=== PATIENT | male | born 1940 | race Caucasian/White ===

== ENCOUNTER 2016-06-23 15:52 | Emergency (ER) | payer MEDICARE, MEDICAID ==
[~2016-06-23 15:52] MED LIST: Sodium Chloride 0.9% 1,000 ML BAG ONE; Sodium Chloride 0.9% 100 ML BAG ONE
[2016-06-23] MEDS ORDERED: Morphine Sulfate 2 MG/ML SYRINGE ONE (16:28)
[2016-06-23] MEDS ORDERED: Ketorolac Tromethamine 30 MG/ML VIAL ONE (16:29)
[2016-06-23] MEDS ORDERED: Ondansetron HCl/PF 4 MG/2 ML Vial ONE (16:29)
[2016-06-23 16:47] LABS: Blood, Urine Moderate (Negative); Clarity Clear (Clear); Glucose, Urine (Dipstick) Negative (Negative); Leukocyte Negative (Negative); Nitrite Negative (Negative); Protein, Urine (Dipstick) > or equal to 300 mg/dL (Neg-Trace); Urobilinogen 0.2 mg/dL (0.2-1.0); pH, Urine 7.5 (5.0-9.0)
--- NOTE | 2016-06-23 16:50 | RAD ---
FRONTAL VIEW CHEST: Date: 06/23/16 COMPARISON: 12/26/14. INDICATION: Cough. FINDINGS: There is hazy density of the inferior left hemithorax. Right lung is hyperinflated. Cardiac silhouet te is accentuated by portable technique. There is prominence of the hilar regions bilaterally. Posto perative and post-traumatic change of the left upper extremity noted. Leads overlying chest limit de tail. There is incomplete visualization of the inferior aspect of the right lateral costophrenic sul cus. IMPRESSION: Evidence of pleural effusion of the left chest with adjacent atelectasis and/or pneumonia. Recommend continued imaging follow-up. POS: [facility]
[2016-06-23 16:53] LABS: Bilirubin Negative (Negative); Icto Negative (Negative)
[2016-06-23 16:54] LABS: Bacteria/HPF Rare-Few HPF (None Seen); Other Microscopic Description C&S SET UP; RBC/HPF 0-3 HPF (0-3); Squamous Epithelial 0-3 HPF (0-3)
[2016-06-23 16:59] LABS: Band 2 % (5-11); Eosinophils 3 % (0-10); Hemoglobin 10.1 g/dL (14.0-18.0); Lymphocytes 8 % (21-51); MDiff Complete? YES; Mean Corpuscular HGB CONC 33.4 g/dL (32.0-36.0); Mean Corpuscular Hemoglobin 30.9 pg (27.0-31.0); Mean Corpuscular Volume 92.6 fl (80.0-94.0); Mean Platelet Volume 6.2 fL (7.4-10.4); Monocytes 2 % (0-10); Neutrophil 85 % (42-75); Platelet Count 349 thou/uL (130-400); RBC Distribution Width 13.3 % (11.5-14.5); Red Blood Cell (RBC) Count 3.27 mill/uL (4.70-6.10); White Blood Cell (WBC) Count 13.4 thou/uL (4.8-10.8)
[2016-06-23 17:02] LABS: ALT (SGPT) 19 U/L (0-55); AST (SGOT) 17 U/L (5-34); Albumin 3.1 g/dL (3.4-4.8); Alkaline Phosphatase 180 U/L (40-150); Amylase 70 U/L (20-160); Anion Gap 14 mmol/L (10-20); BUN (Urea Nitrogen) 32 mg/dL (8.4-25.7); Bilirubin, Total 1.4 mg/dL (0.2-1.2); Calc. Creatinine Clearance 0 mL/min (70-130); Calcium 9.4 mg/dL (7.8-10.44); Carbon Dioxide 30 mmol/L (23-31); Chloride 97 mmol/L (98-107); Estimated GFR-MDRD 48; Glucose 104 mg/dL (83-110); Lipase 17 U/L (8-78); Potassium 3.7 mmol/L (3.5-5.1); Protein, Total 7.1 g/dL (5.8-8.1); Sodium 137 mmol/L (136-145)
[2016-06-23 17:36] LABS: INR-International Normal Ratio 1.2; Prothrombin Time 15.6 SEC (12.0-14.7)
[2016-06-23 17:37] LABS: PTT 39.1 SEC (22.9-36.1)
--- NOTE | 2016-06-23 18:33 | CT ---
CT ABDOMEN AND PELVIS WITHOUT CONTRAST 06/23/16 HISTORY: History of colon cancer, colostomy, nausea and diarrhea for two weeks. Green mucus diarrhea. Blood i n stool. COMPARISON: Chest, abdomen and pelvic CT 09/17/14. FINDINGS: There is a large left pleural effusion. Heart size is normal. Small pericardial effusion. There are extensive calcific plaque throughout the aortoiliac system without aneurysmal dilatation. Ostomy is noted in the right lower quadrant of the abdomen. There is a large inferior left renal pole cyst. There is asymmetric enlargement of the left kidney r elative to the right with perinephric stranding. No distal ureteral stone of either kidney. No renal stones appreciated. There is abnormal thickening along the rectum with stranding. There is a small bowel containing left sided inguinal hernia. This is on the right. There is abnormal thickening of the urinary bladder. Mild disc arthrosis lower lumbar spine. IMPRESSION: 1. Small bowel containing right sided indirect inguinal hernia without evidence of ischemia. 2. Left sided renomegaly with perinephric stranding suggestive of pyelonephritis. 3. Marked wall thickening and presacral soft tissue thickening at the rectum. This may be postt reatment, although there is concern for tumor recurrence. A contrast enhanced MRI is recommended. 4. Large left pleural effusion. Thoracentesis is recommended. POS: [facility]
[2016-06-23] MEDS ORDERED: cefTRIAXone\\ROCEPHIN 2 GM VIAL ONE (22:22)
== END 2016-06-23 23:10 | disposition short-term general hospital (02) ==
LOC: MADERS 15:52
DX: R10.12 Left upper quadrant pain (principal); I31.3 Pericardial effusion (noninflammatory); J90 Pleural effusion, not elsewhere classified; E11.9 Type 2 diabetes mellitus without complications; I10 Essential (primary) hypertension; E78.5 Hyperlipidemia, unspecified; J44.9 Chronic obstructive pulmonary disease, unspecified; J43.9 Emphysema, unspecified; F41.9 Anxiety disorder, unspecified; Z79.899 Other long term (current) drug therapy; Z79.4 Long term (current) use of insulin
CPT/HCPCS: 36415; 71010; 74176; 80053; 81003; 81015; 82150; 83605; 83690; 83880; 85025; 85610; 85730; 87040; 87086; 87430; 96361; 96365; 96375; J0696; J1885; J2270; J2405; J7050